=== PATIENT | female | born 1985 | race Caucasian/White ===

== ENCOUNTER 2025-01-08 09:39 | Outpatient (CLI) | payer BC | END 2025-01-08 09:40 | disposition home or self-care (01) | LOC: CSHMRI 09:39 | PROVIDERS: ATTEND Family Medicine | DX: M51.362 Other intervertebral disc degeneration, lumbar region with discogenic back pain and lower extremity pain (principal); M54.50 Low back pain, unspecified; M47.816 Spondylosis without myelopathy or radiculopathy, lumbar region; M47.817 Spondylosis without myelopathy or radiculopathy, lumbosacral region | CPT/HCPCS: 72148 ==